=== PATIENT | male | born 1950 | race Caucasian/White ===

== ENCOUNTER 2024-10-22 20:00 | Emergency (ER) | payer MEDICARE, OTHER, SELFPAY ==
[2024-10-22 20:33] VITALS: BP 135/75; PULSE 72; RESP 16; TEMP 36.4; O2SAT 98; BMI 22.7
--- NOTE | 2024-10-22 21:35 | PC.NURSE ---
Patient not present in WR. Had previous said might leave at triage.
== END 2024-10-22 21:36 | disposition left against medical advice (07) ==
PROVIDERS: Emergency Provider Emergency Medicine
DX: Z53.21 Procedure and treatment not carried out due to patient leaving prior to being seen by health care provider (principal)
CPT/HCPCS: 99281